=== PATIENT | male | born 1955 | race Caucasian/White ===

== ENCOUNTER 2023-07-22 12:06 | Inpatient (IN) | payer MEDICARE, BC ==
[2023-07-22] MEDS ORDERED: Thiamine HCl 200 MG/2 ML VIAL ONE (13:02)
[2023-07-22 13:36] LABS: #Basophils 0.1 10x3/uL (0.0-0.2); #Eosinphils 0.1 10x3/uL (0.0-0.5); #Monocytes 0.6 10x3/uL (0.0-1.1); #Neutrophils 3.5 10x3/uL (1.5-8.4); %Basophils 1.2 % (0.0-2.0); %Eosinophils 1.5 % (0.0-6.0); %Monocytes 10.2 % (0.0-10.0); %Neutrophils 59.1 % (40.0-75.0); Hematocrit 41.4 % (38.8-50.0); Hemoglobin 14.1 g/dL (13.5-17.5); Mean Corpuscular HGB CONC 34.1 g/dL (32.0-36.0); Mean Corpuscular Hemoglobin 32.2 pg (27.0-33.0); Mean Corpuscular Volume 94.5 fl (81.2-95.1); Platelet Count 337 10x3/uL (150-450); RBC Distribution Width 11.9 % (11.5-14.5); Red Blood Cell (RBC) Count 4.38 10x6/uL (4.32-5.72)
[2023-07-22 13:56] LABS: Bilirubin Neg (Negative); Blood, Urine Negative (Negative); Clarity Clear (Clear); Glucose, Urine (Dipstick) Normal (Negative); Ketone, Urine 50 mg/dL (Negative); Leukocyte Negative (Negative); Nitrite Negative (Negative); Protein, Urine (Dipstick) Negative (Neg-Trace); Urobilinogen Normal mg/dL (Less than 2); pH, Urine 6.5 (5.0-9.0)
[2023-07-22 14:06] LABS: Amphetamine Not Detected (NotDetected); Barbiturates Screen Not Detected (NotDetected); Benzodiazepine Screen Detected (NotDetected); Cocaine Metabolite Screen Not Detected (NotDetected); Methadone Not Detected (NotDetected); Methamphetamine Not Detected (NotDetected); Opiate Screen Detected (NotDetected); Oxycodone Screen Not Detected (NotDetected); Phencyclidine (PCP) Not Detected (NotDetected); THC/Cannabinoid Screen Detected (NotDetected); Tricyclic Screen Not Detected (NotDetected)
[2023-07-22 14:09] LABS: Acetaminophen Less than 10 mcg/mL (10.0-30.0); Alcohol Less than 10.0 mg/dL (Less than 10); Magnesium 2.2 mg/dL (1.6-2.6); Salicylate Less than 8.0 mg/dL (15.0-30.0)
[2023-07-22 14:09] LABS: ALT (SGPT) 28 U/L (8-55); AST (SGOT) 33 U/L (5-34); Albumin 4.2 g/dL (3.4-4.8); Alkaline Phosphatase 84 U/L (40-110); Anion Gap 17 mmol/L (10-20); BUN (Urea Nitrogen) 7 mg/dL (8.4-25.7); Bilirubin, Total 0.6 mg/dL (0.2-1.2); Calc. Creatinine Clearance 0 mL/min (70-130); Carbon Dioxide 22 mmol/L (23-31); Chloride 106 mmol/L (98-107); Estimated GFR 96; Globulin 3.3 g/dL (2.4-3.5); Glucose 109 mg/dL (80-115); Potassium 4.1 mmol/L (3.5-5.1); Protein, Total 7.5 g/dL (5.8-8.1); Sodium 141 mmol/L (136-145)
[2023-07-22 14:15] LABS: Troponin I Less than 0.010 ng/mL (< 0.028)
[2023-07-22 14:28] LABS: RBC/HPF 0-3 HPF (0-3)
[2023-07-22 14:29] LABS: CAUTI Indications for Culture Alt mental st,lethar; Squamous Epithelial 0-3 HPF (0-3); WBC/HPF 0-3 HPF (0-3)
[2023-07-22] MEDS ORDERED: Acetaminophen 650 MG Suppository PR PRN (14:43)
[2023-07-22] MEDS ORDERED: hydrALAZINE 20 MG/ML VIAL SLOW IVP PRN (14:43)
[2023-07-22] MEDS ORDERED: Ondansetron PF 4 MG/2 ML Vial IVP PRN (14:43)
[2023-07-22] MEDS ORDERED: Acetaminophen 325 MG TAB PO PRN (14:43)
[2023-07-22] MEDS ORDERED: Ondansetron ODT 4 MG TAB PO PRN (14:43)
[2023-07-22] MEDS ORDERED: Labetalol HCl 100 MG/20 ML VIAL SLOW IVP PRN (14:43)
[2023-07-22 14:44] LABS: Bacteria/HPF 1+ HPF (None Seen)
[2023-07-22 14:45] LABS: Urine Culture Reflex No No
[2023-07-22] MEDS ORDERED: Cyclobenzaprine 10 MG TAB PO PRN (15:34)
[2023-07-22] MEDS ORDERED: Lactated Ringer's 1,000 ML IV SCH (15:45)
[2023-07-22] MEDS ORDERED: Atorvastatin Calcium 40 MG TAB PO SCH (21:00)
[2023-07-22] MEDS: Atorvastatin Calcium 40 MG TAB PO SCH (22:20)
[2023-07-22] MEDS: Famotidine 20 MG TAB PO SCH (22:21)
[2023-07-22] MEDS: Diazepam 5 MG TAB PO PRN (22:21)
[2023-07-23 00:37] VITALS: BMI 36.6
[2023-07-23 05:18] LABS: Anion Gap 17 mmol/L (10-20); BUN (Urea Nitrogen) 8 mg/dL (8.4-25.7); Calc. Creatinine Clearance 135 mL/min (70-130); Calcium 10.4 mg/dL (7.8-10.44); Carbon Dioxide 22 mmol/L (23-31); Cardiac Risk 5.6 (Less than 4.5); Chloride 107 mmol/L (98-107); Cholesterol 191 mg/dl (< 200 Desired); Estimated GFR 95; Glucose 107 mg/dL (80-115); HDL Cholesterol 34 mg/dL (>60 Neg Risk); LDL Cholesterol, Calculated 131 mg/dL; Sodium 142 mmol/L (136-145); Triglycerides 130 mg/dL (Less than 150)
[2023-07-23] MEDS: Diazepam 5 MG TAB PO PRN ×2 (07:32→21:52)
[2023-07-23] MEDS: HYDROcodone/Acetaminophen 5/325 mg Tablet PO PRN ×2 (10:03→21:59)
[2023-07-23] MEDS: Aspirin 81 mg Enteric Coated Tablet PO SCH (10:05)
[2023-07-23] MEDS: Famotidine 20 MG TAB PO SCH ×2 (10:05→21:51)
[2023-07-23] MEDS: Hydrochlorothiazide 25 MG TAB PO SCH (10:06)
[2023-07-23] MEDS: PARoxetine 20 MG TAB PO SCH (10:06)
[2023-07-23 13:48] LABS: Hemoglobin A1c 5.7 % (4.0-6.0)
[2023-07-23] MEDS: Thiamine HCl 500 MG, Admixture Fee 1 EACH in Sodium Chloride 0.9% 250 ML 250 ML IVPB SCH ×2 (17:02→21:52)
[2023-07-23] MEDS: Atorvastatin Calcium 40 MG TAB PO SCH (21:51)
[2023-07-24 06:46] VITALS: TEMP 97.9
[2023-07-24] MEDS: Thiamine HCl 500 MG, Admixture Fee 1 EACH in Sodium Chloride 0.9% 250 ML 250 ML IVPB SCH (08:27)
[2023-07-24] MEDS: Aspirin 81 mg Enteric Coated Tablet PO SCH (08:28)
[2023-07-24] MEDS: PARoxetine 20 MG TAB PO SCH (08:28)
[2023-07-24] MEDS: Hydrochlorothiazide 25 MG TAB PO SCH (08:28)
[2023-07-24] MEDS: Famotidine 20 MG TAB PO SCH (08:28)
[2023-07-24] MEDS: HYDROcodone/Acetaminophen 5/325 mg Tablet PO PRN (08:33)
[2023-07-24 08:56] VITALS: BP 146/84
[2023-07-25] MEDS ORDERED: Thiamine HCl 250 MG, Admixture Fee 1 EACH in Sodium Chloride 0.9% 100 ML IVPB SCH (09:00)
[2023-07-30] MEDS ORDERED: Thiamine HCl 200 MG/2 ML VIAL SLOW IVP SCH (09:00)
== END 2023-07-24 11:48 | disposition home health service (06) | DRG 641 ==
LOC: CSHERS 12:06 → CSHTELE 14:26 → OBSVTOIN 07-23 09:49
PROVIDERS: ADMIT Family Medicine; ATTEND Family Medicine
DX: E51.2 Wernicke's encephalopathy (principal); I10 Essential (primary) hypertension; I25.10 Atherosclerotic heart disease of native coronary artery without angina pectoris; F12.90 Cannabis use, unspecified, uncomplicated; F10.20 Alcohol dependence, uncomplicated; Z82.49 Family history of ischemic heart disease and other diseases of the circulatory system; Z79.899 Other long term (current) drug therapy; Z98.890 Other specified postprocedural states; Z87.891 Personal history of nicotine dependence; Z79.82 Long term (current) use of aspirin
CPT/HCPCS: 36415; 70450; 70551; 71045; 72125; 72131; 80048; 80053; 80061; 80306; 80307; 81001; 82140; 82533; 83036; 83605; 83735; 84443; 84484; 85025; 87040; 93005; J1650; J3411; J7050; J7120

== ENCOUNTER 2023-08-19 09:07 | Outpatient (CLI) | payer MEDICARE, BC | END 2023-08-19 09:08 | disposition home or self-care (01) | LOC: CSHRAD 09:07 | PROVIDERS: ATTEND Orthopaedic Surgery | DX: M54.50 Low back pain, unspecified (principal); Z98.890 Other specified postprocedural states; M47.816 Spondylosis without myelopathy or radiculopathy, lumbar region | CPT/HCPCS: 72100 ==